=== PATIENT | female | born 1970 ===

== ENCOUNTER 2017-07-09 15:45 | Emergency (ER) | payer OTHER ==
[2017-07-09 15:51] VITALS: TEMP 98.5
--- NOTE | 2017-07-09 16:41 | C.PDOC ---
History Of Present Illness 47 yo female w/o significant PMHx come in for evaluation of lower back, B/L legs pain, R>L, Right arm pain gradually developed for past 2 weeks. Pt reports , " standing on my work all the time, some time do not move". Pt sts, pain is aching, intermittent , " some times my legs gets swollen and swelling resolved with time", Pain is worse with movement for past few days. Pt admits, was seen by PMD 2 weeks ago due to above complaints, " when xray of Right ankle and blood work done, dont known results" and pt received Rx: Naproxen without significant improvement in pain. Otherwise, pt denies known direct trauma or injury, fever, chills, headache, dizziness, neck pain, CP, SOB, dyspnea, palpitation, diaphoresis, abd. pain, N/V, denies weakness, deformity, sensory or vascular deficits to B/L UEs and LEs. Ambulate to ED for evaluation, not in any apparent distress. Pt denies BCP use, no risk factors for DVT or PE. Time Seen by Provider: 07/09/17 15:54 Chief Complaint (Nursing): Lower Extremity Problem/Injury History Per: Patient History/Exam Limitations: no limitations Onset/Duration Of Symptoms: Intermittent Episodes, Gradual, Other (2 weeks ) Current Symptoms Are (Timing): Still Present Additional History Per: Patient Past Medical History Reviewed: Historical Data, Nursing Documentation, Vital Signs Vital Signs: Last Vital Signs Temp 98.5 F 07/09/17 15:51 Pulse 86 07/09/17 15:51 Resp 16 07/09/17 15:51 BP 158/83 H 07/09/17 15:51 Pulse Ox 100 07/09/17 17:09 - Medical History PMH: No Chronic Diseases Surgical History: No Surg Hx Family History: States: Unknown Family Hx - Social History Hx Alcohol Use: No Hx Substance Use: No - Immunization History Hx Tetanus Toxoid Vaccination: No Hx Influenza Vaccination: No Review Of Systems Constitutional: Negative for: Fever, Chills Cardiovascular: Negative for: Chest Pain, Palpitations Respiratory: Negative for: Shortness of Breath Musculoskeletal: Negative for: Neck Pain Neurological: Negative for: Weakness, Numbness, Headache, Dizziness Physical Exam - Physical Exam Appears: Well, Non-toxic, No Acute Distress Skin: Normal Color, Warm, Dry, No Rash, No Ecchymosis Eye(s): bilateral: PERRL Nose: No Flaring Throat: No Erythema, No Drooling Neck: Normal ROM, Supple Cardiovascular: Rhythm Regular Respiratory: No Decreased Breath Sounds, No Accessory Muscle Use, No Rales, No Rhonchi, No Stridor, No Wheezing Gastrointestinal/Abdominal: Soft, No Tenderness, No Distention, No Guarding, No Rebound Back: No CVA Tenderness, No Vertebral Tenderness, No Paraspinal Tenderness ( mild RIght sided. NO midline tenderness, no skin changes.) Extremity: Normal ROM (B/L LEs), Tenderness (over posterior Right knee), No Pedal Edema, No Calf Tenderness, No Deformity, Swelling (mild trace edema B/L ankle, non-pitting.) Neurological/Psych: Oriented x3, Normal Speech, Normal Motor, Normal Sensation, Normal Reflexes ED Course And Treatment O2 Sat by Pulse Oximetry: 100 (on RA) Pulse Ox Interpretation: Normal - Other Rad Right knee X-Ray: Interpreted by Me, Viewed By Me Interpretation: no acute fx or dislocation L-spine X-Ray: Interpreted by Me, Viewed By Me Pelvis w/BL hips X-Ray: Interpreted by Me, Viewed By Me Interpretation: no acute fx or dislocation Progress Note: Right knee XR, Hip XR, LS Spine AP/LAT ordered and reviewed. Patient received Toradol IM, Valium PO. On re-evaluation, pt is AAO#3, not in any apparent distress. Afebrile, hemodynamicaly stable. Non-toxic. Ambulatory in ED with stable gait. ENT: no acute findings. neck: Supple, (-) meningeal sign. Lungs: CTA B/L, BS equal B/L. ABd: benitgn, (-)guarding, (-) rebound. Back: (-) CVA tenderness. FAROM of B/L UEs and LEs, no neurovascular deficits. Pt has clinical findings c/w back pian r/o lumbar radiculopathy, Right knee apin, arm pain, muscle strain. Pt advised and Ref. to F/u with PMD in 1-2 days for re-eval. return to ED if any worsening or new changes. Disposition Counseled Patient/Family Regarding: Studies Performed, Diagnosis, Need For Followup, Rx Given - Disposition Referrals: Susanne Vera [Staff Provider] - Disposition: HOME/ ROUTINE Disposition Time: 17:28 Condition: STABLE Additional Instructions: Bedrest for 2-3 days Take pain medication as prescribed as need Follow up with PMD in 2-3 days for re-evaluation. Return to ED if any worsening or new changes. Prescriptions: Methocarbamol [Robaxin] 500 mg PO TID #14 tab traMADol [Ultram] 50 mg PO TID #7 tab Instructions: Back Pain (ED), Knee Pain (ED), Arthralgia (ED), Muscle Strain ( ED) Forms: [employer] [facility] (Chinese), Work Excuse Print Language: TRISTANIAN - Clinical Impression Clinical Impression: Lumbar radiculopathy, Muscle strain, Joint pain - PA / [employer] / Resident Statement MD/DO has reviewed & agrees with the documentation as recorded. - Scribe Statement The provider has reviewed the documentation as recorded by the Scribe (Iva Perez) All medical record entries made by the Scribe were at my direction and personally dictated by me. I have reviewed the chart and agree that the record accurately reflects my personal performance of the history, physical exam, medical decision making, and the department course for this patient. I have also personally directed, reviewed, and agree with the discharge instructions and disposition.
[2017-07-09 17:17] LABS: RBC URINE 4 /hpf (0-3); URINE BACTERIA FEW (<OCC); URINE BILIRUBIN NEGATIVE (NEGATIVE); URINE BLOOD NEGATIVE (NEGATIVE); URINE COLOR Yellow (YELLOW); URINE GLUCOSE (UA) NORMAL (Normal); URINE KETONE NEGATIVE (NEGATIVE); URINE LEUKOCYTE ESTERASE TRACE Leu/uL (Negative); URINE PROTEIN NEGATIVE (NEGATIVE); URINE UROBILINOGEN NORMAL mg/dL (0.2-1.0); WBC URINE 6 /hpf (0-5)
--- NOTE | 2017-07-09 17:44 | RAD ---
PROCEDURE: Radiographs of the Lumbar Spine. HISTORY: pain COMPARISON: No prior. FINDINGS: BONES: Normal alignment. No listhesis. No fracture. DISC SPACES: Unremarkable. OTHER FINDINGS: None. IMPRESSION: Unremarkable radiographs of the lumbar spine.
--- NOTE | 2017-07-09 17:45 | RAD ---
PROCEDURE: Right Knee Radiographs. HISTORY: pain COMPARISON: None. FINDINGS: BONES: Normal. No fracture. JOINTS: Normal. No osteoarthritis. JOINT EFFUSION: None. OTHER FINDINGS: None. IMPRESSION: Normal radiographs of the right knee.
[2017-07-09 17:48] VITALS: BP 139/75; PULSE 78; RESP 18; O2SAT 98
--- NOTE | 2017-07-09 17:48 | RAD ---
PROCEDURE: Radiographs of the pelvis and bilateral hips HISTORY: pain COMPARISON: None. FINDINGS: BONES: Pelvic ring is intact without fracture or suspicious lytic or blastic change identified. Local soft tissues appear diffusely unremarkable and mild degenerative changes are seen at the sacroiliac and hip joints. Pubic symphysis is intact. JOINTS: No fracture or dislocation seen involving left or right hip joints with local soft tissues unremarkable. SOFT TISSUES: As above. OTHER FINDINGS: None. IMPRESSION: Limited degenerate changes are seen the bilateral hip and sacroiliac joints. No fracture or dislocation identified.
== END 2017-07-09 17:48 | disposition home or self-care (01) ==
LOC: C.ER 15:45
DX: M54.16 Radiculopathy, lumbar region (principal); S86.911A Strain of unspecified muscle(s) and tendon(s) at lower leg level, right leg, initial encounter; X58.XXXA Exposure to other specified factors, initial encounter; M79.601 Pain in right arm

== ENCOUNTER 2018-01-15 14:31 | Emergency (ER) | payer OTHER ==
[2018-01-15 14:39] VITALS: BP 152/90; PULSE 73; RESP 18; TEMP 98.1; O2SAT 100
[2018-01-15] MEDS ORDERED: Acetaminophen-Codeine 300/30 mg Tab PO STA (14:58)
[2018-01-15] MEDS ORDERED: Acetaminophen-Codeine 300/30 mg Tab PO ONE (15:45)
--- NOTE | 2018-01-15 15:54 | C.PDOC ---
History Of Present Illness 47 yr old female presents to the ER with complaints of upper back pain for the past 2 weeks. Patient reports temporary relief with Motrin. Denies injury, trauma, chest pain, SOB, abdominal pain, constipation, dysuria, incontinence, weakness or numbness. Time Seen by Provider: 01/15/18 14:51 Chief Complaint (Nursing): Back Pain History Per: Patient History/Exam Limitations: no limitations Onset/Duration Of Symptoms: Days (2 weeks) Past Medical History Reviewed: Historical Data, Nursing Documentation, Vital Signs Vital Signs: Last Vital Signs Temp 98.1 F 01/15/18 14:33 Pulse 73 01/15/18 14:33 Resp 18 01/15/18 14:33 BP 152/90 H 01/15/18 14:33 Pulse Ox 100 01/15/18 15:55 Family History: States: No Known Family Hx - Social History Hx Alcohol Use: No Hx Substance Use: No - Immunization History Hx Tetanus Toxoid Vaccination: No Hx Influenza Vaccination: No Review Of Systems Except As Marked, All Systems Reviewed And Found Negative. Cardiovascular: Negative for: Chest Pain Respiratory: Negative for: Shortness of Breath Gastrointestinal: Negative for: Abdominal Pain, Constipation Genitourinary: Negative for: Dysuria Neurological: Negative for: Weakness, Numbness Physical Exam - Physical Exam Appears: Non-toxic, No Acute Distress Skin: Warm, Dry, No Rash Oral Mucosa: Moist Neck: Normal, Normal ROM, No Midline Cervical Tenderness, Supple Cardiovascular: Rhythm Regular, No Murmur Respiratory: Normal Breath Sounds, No Rales, No Rhonchi, No Stridor, No Wheezing Back: Muscle Spasm, Other (+ parathoracic and paralumbar tenderness) Extremity: Normal ROM, No Swelling Neurological/Psych: Oriented x3, Normal Speech, Normal Motor, Normal Sensation, Normal Reflexes ED Course And Treatment O2 Sat by Pulse Oximetry: 100 (RA) Pulse Ox Interpretation: Normal Medical Decision Making Medical Decision Making: IMPRESSION: Back pain PLAN: * Motrin PO * Tylenol/Codeine Po NOTE: * Patient is treated with Motrin and Tylenol/Codeine for the pain * On reevaluation, patient reports improvement of pain * Patient is discharged home with pain management and follow up instructions Disposition Discussed With DrSixto: Susanne Vera Counseled Patient/Family Regarding: Diagnosis, Need For Followup, Rx Given - Disposition Disposition: HOME/ ROUTINE Disposition Time: 15:52 Condition: STABLE Additional Instructions: follow up with your doctor in 2 days call to make an appointment take medications as prescribed return to ER if symptoms worsens or progress Prescriptions: Acetaminophen with Codeine [Tylenol with Codeine #3 Tablet] 1 each PO TID PRN # 15 tablet PRN Reason: Pain, Moderate (4-7) Cyclobenzaprine [Cyclobenzaprine HCl] 10 mg PO TID PRN #12 tab PRN Reason: Muscle Spasm Instructions: Upper Back Pain Forms: Gen Discharge Inst Turkmen, [facility] (Turkmen) Print Language: ICELANDIC - Clinical Impression Clinical Impression: Thoracic back sprain - Scribe Statement The provider has reviewed the documentation as recorded by the Beau Jaffe Provider Attestation: All medical record entries made by the Beau were at my direction and personally dictated by me. I have reviewed the chart and agree that the record accurately reflects my personal performance of the history, physical exam, medical decision making, and the department course for this patient. I have also personally directed, reviewed, and agree with the discharge instructions and disposition.
== END 2018-01-15 16:00 | disposition home or self-care (01) ==
LOC: C.ER 14:31
DX: S23.3XXA Sprain of ligaments of thoracic spine, initial encounter (principal); X58.XXXA Exposure to other specified factors, initial encounter; Y92.9 Unspecified place or not applicable

== ENCOUNTER 2018-10-21 09:14 | Observation (INO) | payer OTHER ==
--- NOTE | 2018-10-21 10:01 | C.PDOC ---
History Of Present Illness Patient is a pleasant 48 female presents to ED for complaints of intermittent midsternal & left sided chest pain. Patient describes pain as intermittent, radiates to the back at times, squeezing in nature, worsens on exertion, and a ssociated with fatigue. LNMP 09/29/18. Denies PMHx, Hx of hospitalization, smoking, drinking, or drug use. 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 Time Seen by Provider: 10/21/18 09:32 Chief Complaint (Nursing): Chest Pain History Per: Patient History/Exam Limitations: no limitations Onset/Duration Of Symptoms: Hrs Current Symptoms Are (Timing): Still Present Quality: Squeezing Modifying Factors: None Exacerbating Factors: Exertion Alleviating Factors: None Recent travel outside of the [place]: No Past Medical History Reviewed: Historical Data, Nursing Documentation, Vital Signs Vital Signs: Last Vital Signs Temp 97.7 F 10/21/18 09:26 Pulse 80 10/21/18 09:26 Resp 18 10/21/18 09:26 BP 136/81 10/21/18 09:26 Pulse Ox 100 10/21/18 09:26 - Medical History PMH: No Chronic Diseases Surgical History: No Surg Hx Family History: States: Other Other Family History: Cancer (Father and Nephew). - Social History Hx Tobacco Use: No Hx Alcohol Use: No Hx Substance Use: No - Immunization History Hx Tetanus Toxoid Vaccination: No Hx Influenza Vaccination: No Review Of Systems Constitutional: Positive for: Chills. Negative for: Fever Cardiovascular: Positive for: Chest Pain (Midsternal ) Respiratory: Negative for: Shortness of Breath Gastrointestinal: Negative for: Nausea, Vomiting, Abdominal Pain, Diarrhea Skin: Negative for: Rash Neurological: Negative for: Weakness, Numbness Physical Exam - Physical Exam Appears: Well, Non-toxic, No Acute Distress Skin: Normal Color, Warm, Dry, No Rash Head: Atraumatic, Normacephalic Eye(s): bilateral: Normal Inspection, PERRL, EOMI Ear(s): Bilateral: Normal Nose: Normal Oral Mucosa: Moist Tongue: Normal Appearing Lips: Normal Appearing Teeth: Normal Dentition Gingiva: Normal Appearing Neck: Normal ROM, Supple Chest: Symmetrical, No Tenderness Cardiovascular: Rhythm Regular, No Murmur Respiratory: Normal Breath Sounds, No Accessory Muscle Use, No Rales, No R honchi, No Wheezing Gastrointestinal/Abdominal: Normal Exam, Bowel Sounds (Active ), Soft, No Tenderness Back: Normal Inspection Extremity: Normal ROM, No Pedal Edema, No Calf Tenderness Extremity: Bilateral: Atraumatic, Normal Color And Temperature, Normal ROM Pulses: Left Radial: Normal, Right Radial: Normal Neurological/Psych: Oriented x3, Normal Speech, Normal Motor, Normal Sensation, Other (No focal deficits ) Gait: Steady ED Course And Treatment - Laboratory Results Result Diagrams: 10/21/18 10:06 10/21/18 10:06 O2 Sat by Pulse Oximetry: 100 (RA) Pulse Ox Interpretation: Normal - Other Rad CXR X-Ray: Viewed By Me, Read By Radiologist Interpretation: Date of service: 10/21/2018. HISTORY: Chest pain. COMPAR DOE: No prior. TECHNIQUE: Chest PA and lateral. FINDINGS: LINES AND TUBES: None. LUNG AND PLEURA: The lungs are well inflated and clear. No pleural effusion or pneumothorax. HEART AND MEDIASTINUM: The heart is not enlarged. No aortic atherosclerotic calcification present. The hilar and mediastinal contours are within normal limits. SKELETAL STRUCTURES: The bony structures are within normal limits for the patient's age. VISUALIZED UPPER ABDOMEN: Normal. OTHER FINDINGS: None. IMPRESSION: No active pulmonary disease. Medical Decision Making Medical Decision Making: Initial Impression: Chest pain especially w/ exertion (new onset). Pt with no prior hx of chest pain (according to the pt) Initial Plan: * EKG * Blood work * CXR * D-Dimer * Aspirin not given due to allergy 11:10 AM - Progress note: Lab work unremarkable but due to symptoms and no prior hx of chest pain, will admit for serial cardiac enzymes. Patient endorsed to spitalist Dr. Kajal Ferreira. / Disposition Counseled Patient/Family Regarding: Studies Performed, Diagnosis - Disposition Disposition: HOSPITALIZED Disposition Time: 11:14 Condition: FAIR - POA Present On Arrival: None - Clinical Impression Clinical Impression: Chest pain - Scribe Statement The provider has reviewed the documentation as recorded by the Scribe Jack Sultana All medical record entries made by the Scribe were at my direction and person ally dictated by me. I have reviewed the chart and agree that the record accurately reflects my personal performance of the history, physical exam, medical decision making, and the department course for this patient. I have also personally directed, reviewed, and agree with the discharge instructions and disposition.wfik Decision To Admit - Pt Status Changed To: Hospital Disposition Of: Observation - . Bed Request Type: Telemetry Admitting Physician: Kajal Ferreira Patient Diagnosis: Chest pain
[2018-10-21 10:16] LABS: BASO % 1.3 % (0.0-2.0); EOS # 0.2 K/uL (0.0-0.7); EOS % 5.9 % (0.0-4.0); HEMOGLOBIN 11.6 g/dL (11.0-16.0); LYMPH # 1.4 K/uL (1.0-4.3); LYMPH % 39.8 % (20.0-40.0); MEAN CELL VOLUME 93.8 fL (81.0-99.0); MEAN CORPUSCULAR HEMOGLOBIN 31.5 pg (27.0-31.0); MEAN CORPUSCULAR HGB CONC 33.6 g/dL (33.0-37.0); MEAN PLATELET VOLUME 8.4 fL (7.2-11.7); MONO # 0.4 K/uL (0.0-0.8); MONO % 10.8 % (0.0-10.0); NEUT # 1.5 K/uL (1.8-7.0); NEUT % 42.2 % (50.0-75.0); RBC 3.68 Mil/uL (3.80-5.20); RED CELL DISTRIBUTION WIDTH 14.4 % (11.5-14.5); WHITE BLOOD COUNT 3.5 K/uL (4.8-10.8)
[2018-10-21 10:24] LABS: ALB/GLOB RATIO 1.4 (1.0-2.1); ALBUMIN 4.5 g/dL (3.5-5.0); ALT/SGPT 21 U/L (9-52); AST/SGOT 22 U/L (14-36); BLOOD UREA NITROGEN 9 mg/dL (7-17); CALCIUM 9.5 mg/dl (8.6-10.4); GFR NON-AFRICAN AMERICAN > 60
[2018-10-21 10:34] LABS: B-TYPE NATRIURETIC PEPTIDE 82.4 pg/mL (0-450)
--- NOTE | 2018-10-21 11:10 | RAD ---
Date of service: 10/21/2018 HISTORY: Chest pain COMPARISON: No prior. TECHNIQUE: Chest PA and lateral FINDINGS: LINES AND TUBES: None. LUNG AND PLEURA: The lungs are well inflated and clear. No pleural effusion or pneumothorax. HEART AND MEDIASTINUM: The heart is not enlarged. No aortic atherosclerotic calcification present. The hilar and mediastinal contours are within normal limits. SKELETAL STRUCTURES: The bony structures are within normal limits for the patient's age. VISUALIZED UPPER ABDOMEN: Normal. OTHER FINDINGS: None. IMPRESSION: No active pulmonary disease.
--- NOTE | 2018-10-21 12:01 | CP.PCM.HP ---
History of Present Illness - History of Present Illness History of Present Illness: cc: chest pain HPI: 48 y/o female, no significant PMH, presented to the ED on 10/21/18 with intermittent chest pain and constant back pain. As per pt, the pain began one week ago and has remained the same intensity throughout the week. The back pain is located in her mid thoracic region (T7) b/l, while her chest pain is located on the left side of her chest (ribs 4-5). She describes the chest pain as "pressure" and the back pain as a "tightness" that feels like "someone is grabbing her, then letting her go." She reports radiation of the pain to her right shoulder and right arm, and rates the pain at 10/10 upon arrival to the ED and 6/10 currently. Her pain is made worse with movement and better with rest. She also admitted to taking Ibuprofen 800mg (prescribed at [facility] during ED visit Jan 2018) at home, which helped decrease the pain slightly. She denies any recent illnesses, sick contacts or travel. She denies every experiencing this pain before and does not remember if there were any inciting events. LMP was September 29 2018 and she reports it as being normal. She reports chest pain, back pain (mid thoracic), neck and shoulder pain, headache, chills, nausea, intermittent palpitations, intermittent numbness in b/l LE, and weight loss. She denies SOB, cough, vomiting, diarrhea, constipatio n, dysuria, hematuria, dysmenorrhea, cold intolerance, or muscle weakness. PMD: Dr. Hannah Pack PMH: possible GERD (resolves without medication) PSH: denies FH: denies All: aspirin Social: lives with her and daughter; denies any prior or current alcohol, tobacco or illicit drug use Present on Admission - Present on Admission Any Indicators Present on Admission: No Review of Systems - Constitutional Constitutional: absent: Chills, Headache - EENT Eyes: absent: Blurred Vision Ears: absent: Decreased Hearing Nose/Mouth/Throat: absent: Dry Mouth, Dysphagia - Cardiovascular Cardiovascular: Chest Pain, Chest Pain at Rest - Respiratory Respiratory: absent: Dyspnea, Snoring - Genitourinary Genitourinary: absent: Hematuria, Pyuria - Musculoskeletal Musculoskeletal: absent: Arthralgias - Integumentary Integumentary: absent: Alopecia, Change in Pigmentation, Lesions - Neurological Neurological: absent: Abnormal Hearing, Headaches, Radicular Pain - Psychiatric Psychiatric: absent: Confusion, Depression Past Patient History - Past Social History Smoking Status: Never Smoked - PSYCHIATRIC Hx Substance Use: No - SURGICAL HISTORY Hx Surgeries: No - ANESTHESIA Hx Anesthesia: No Hx Anesthesia Reactions: No Meds Allergies/Adverse Reactions: Allergies Allergy/AdvReac Type Severity Reaction Status Date / Time aspirin Allergy NAUSEA Verified 01/15/18 14:37 Physical Exam - Constitutional Appears: Non-toxic, No Acute Distress - Head Exam Head Exam: NORMAL INSPECTION, NORMOCEPHALIC - Eye Exam Eye Exam: EOMI, Normal appearance - ENT Exam ENT Exam: Mucous Membranes Moist - Respiratory Exam Respiratory Exam: Clear to Auscultation Bilateral, NORMAL BREATHING PATTERN. absent: Rales, Rhonchi, Wheezes - Cardiovascular Exam Cardiovascular Exam: +S1, +S2 - GI/Abdominal Exam GI & Abdominal Exam: Normal Bowel Sounds, Soft. absent: Distended, Firm, Tenderness - Extremities Exam Extremities exam: Negative for: calf tenderness, pedal edema - Back Exam Back exam: absent: CVA tenderness (L), CVA tenderness (R) - Neurological Exam Neurological exam: Alert, Oriented x3 - Psychiatric Exam Psychiatric exam: Normal Affect, Normal Mood - Skin Skin Exam: Dry, Intact, Normal Color, Warm Results - Vital Signs Recent Vital Signs: Last Vital Signs Temp 98.5 F 10/21/18 11:42 Pulse 65 10/21/18 11:42 Resp 16 10/21/18 11:42 BP 137/82 10/21/18 11:42 Pulse Ox 100 10/21/18 11:42 - Labs Result Diagrams: 10/21/18 10:06 10/21/18 10:06 Labs: Laboratory Results - last 24 hr 10/21/18 10/21/18 10/21/18 10:06 10:06 10:06 WBC 3.5 L RBC 3.68 L Hgb 11.6 Hct 34.5 MCV 93.8 MCH 31.5 H MCHC 33.6 RDW 14.4 Plt Count 265 MPV 8.4 Neut % (Auto) 42.2 L Lymph % (Auto) 39.8 [place] % (Auto) 10.8 H Eos % (Auto) 5.9 H Baso % (Auto) 1.3 Neut # (Auto) 1.5 L Lymph # (Auto) 1.4 [place] # (Auto) 0.4 Eos # (Auto) 0.2 Baso # (Auto) 0.0 D-Dimer, Quantitative < 200 Sodium 138 Potassium 4.2 Chloride 101 Carbon Dioxide 26 Anion Gap 15 BUN 9 Creatinine 0.6 L Est GFR ( Amer) > 60 Est GFR (Non-Af Amer) > 60 Random Glucose 96 Calcium 9.5 Total Bilirubin 0.9 AST 22 ALT 21 Alkaline Phosphatase 54 Total Creatine Kinase 62 Troponin I < 0.0120 NT-Pro-B Natriuret Pep 82.4 Total Protein 7.9 Albumin 4.5 Globulin 3.3 Albumin/Globulin Ratio 1.4 Assessment & Plan - Assessment and Plan (Free Text) Assessment: 48 F w/ no PMhx presented to ED for chest pain ~ 1 week: Chest Pain - ACS vs muscle train - troponins X3 negative - EKG T-wave inversions in V1, V2, V4, NSR - f/u additional EKG - tenderness on palpation on back - A1C 5.5, Lipid panel WNL - F/u ECH - F/u cardio, Dr. Alcantar recs - Cyclobenzaprin 5 Po once, toradol 50mg, naproxen 550 mg PO BID Prophylaxis - DVT: SCDs - Heart healthy diet - PT/OT eval
[2018-10-21 14:40] LABS: HDL CHOLESTEROL 63 mg/dL (30-70)
[2018-10-21 14:50] LABS: LDL CHOLESTEROL 90 mg/dL (0-129)
[2018-10-21 14:54] LABS: CK-MB 0.24 ng/mL (0.0-3.38)
[2018-10-21] MEDS: Naproxen 550 mg Tab PO SCH (18:03)
[2018-10-21 21:41] LABS: CK-MB 0.25 ng/mL (0.0-3.38)
[2018-10-22 01:34] VITALS: RESP 20
[2018-10-22 07:29] LABS: BASO % 1.3 % (0.0-2.0); EOS # 0.2 K/uL (0.0-0.7); EOS % 6.6 % (0.0-4.0); HEMOGLOBIN 11.2 g/dL (11.0-16.0); LYMPH # 1.6 K/uL (1.0-4.3); LYMPH % 46.2 % (20.0-40.0); MEAN CELL VOLUME 94.1 fL (81.0-99.0); MEAN CORPUSCULAR HEMOGLOBIN 31.4 pg (27.0-31.0); MEAN CORPUSCULAR HGB CONC 33.4 g/dL (33.0-37.0); MEAN PLATELET VOLUME 8.4 fL (7.2-11.7); MONO # 0.4 K/uL (0.0-0.8); MONO % 11.5 % (0.0-10.0); NEUT # 1.2 K/uL (1.8-7.0); NEUT % 34.4 % (50.0-75.0); NRBC % 0.1 % (0.0-2.0); RBC 3.57 Mil/uL (3.80-5.20); RED CELL DISTRIBUTION WIDTH 14.3 % (11.5-14.5); WHITE BLOOD COUNT 3.4 K/uL (4.8-10.8)
[2018-10-22 08:08] LABS: ALB/GLOB RATIO 1.3 (1.0-2.1); ALBUMIN 4.1 g/dL (3.5-5.0); ALT/SGPT 24 U/L (9-52); AST/SGOT 23 U/L (14-36); BLOOD UREA NITROGEN 14 mg/dL (7-17); CALCIUM 9.2 mg/dl (8.6-10.4); GFR NON-AFRICAN AMERICAN > 60
[2018-10-22 08:21] VITALS: O2SAT 100
[2018-10-22] MEDS: Naproxen 550 mg Tab PO SCH (09:32)
[2018-10-22] MEDS ORDERED: Enoxaparin 40 mg Syringe SC SCH (10:00)
--- NOTE | 2018-10-22 15:19 | CP.PCM.DIS ---
Provider - Provider Date of Admission: 10/21/18 11:14 Attending physician: Kajal Ferreira, Consults: 10/21/18 15:19 Cardiology Consult Routine Comment: Consulting Provider: Shiraz Alcantar Consulting Physician: Shiraz Alcantar Reason for Consult: abnormal ekg, chest pain 10/21/18 15:32 Cardiology Consult Routine Comment: Consulting Provider: Shiraz Alcantar Consulting Physician: Shiraz Alcantar Reason for Consult: abnormal ekg, chest pain Time Spent in preparation of Discharge (in minutes): 45 Diagnosis - Discharge Diagnosis (1) Chest pain Status: Resolved (2) Thoracic back sprain Status: Acute Hospital Course - Lab Results Lab Results: Most Recent Lab Values WBC 3.4 K/uL (4.8-10.8) L 10/22/18 07:20 RBC 3.57 Mil/uL (3.80-5.20) L 10/22/18 07:20 Hgb 11.2 g/dL (11.0-16.0) 10/22/18 07:20 Hct 33.6 % (34.0-47.0) L 10/22/18 07:20 MCV 94.1 fL (81.0-99.0) 10/22/18 07:20 MCH 31.4 pg (27.0-31.0) H 10/22/18 07:20 MCHC 33.4 g/dL (33.0-37.0) 10/22/18 07:20 RDW 14.3 % (11.5-14.5) 10/22/18 07:20 Plt Count 258 K/uL (130-400) 10/22/18 07:20 MPV 8.4 fL (7.2-11.7) 10/22/18 07:20 Neut % (Auto) 34.4 % (50.0-75.0) L 10/22/18 07:20 Lymph % (Auto) 46.2 % (20.0-40.0) H 10/22/18 07:20 Davidson % (Auto) 11.5 % (0.0-10.0) H 10/22/18 07:20 Eos % (Auto) 6.6 % (0.0-4.0) H 10/22/18 07:20 Baso % (Auto) 1.3 % (0.0-2.0) 10/22/18 07:20 Neut # (Auto) 1.2 K/uL (1.8-7.0) L 10/22/18 07:20 Lymph # (Auto) 1.6 K/uL (1.0-4.3) 10/22/18 07:20 Davidson # (Auto) 0.4 K/uL (0.0-0.8) 10/22/18 07:20 Eos # (Auto) 0.2 K/uL (0.0-0.7) 10/22/18 07:20 Baso # (Auto) 0.0 K/uL (0.0-0.2) 10/22/18 07:20 D-Dimer, Quantitative < 200 ng/mlDDU (0-243) 10/21/18 10:06 Sodium 135 mmol/L (132-148) 10/22/18 07:20 Potassium 4.1 mmol/L (3.6-5.2) 10/22/18 07:20 Chloride 102 mmol/L (98-107) 10/22/18 07:20 Carbon Dioxide 24 mmol/L (22-30) 10/22/18 07:20 Anion Gap 13 (10-20) 10/22/18 07:20 BUN 14 mg/dL (7-17) 10/22/18 07:20 Creatinine 0.6 mg/dL (0.7-1.2) L 10/22/18 07:20 Est GFR ( Amer) > 60 10/22/18 07:20 Est GFR (Non-Af Amer) > 60 10/22/18 07:20 Random Glucose 89 mg/dL (65-105) 10/22/18 07:20 Hemoglobin A1c 5.5 % (4.2-6.5) 10/21/18 14:31 Calcium 9.2 mg/dl (8.6-10.4) 10/22/18 07:20 Phosphorus 4.1 mg/dL (2.5-4.5) 10/22/18 07:20 Magnesium 1.7 mg/dL (1.6-2.3) 10/22/18 07:20 Total Bilirubin 0.8 mg/dL (0.2-1.3) 10/22/18 07:20 AST 23 U/L (14-36) 10/22/18 07:20 ALT 24 U/L (9-52) 10/22/18 07:20 Alkaline Phosphatase 51 U/L (38-126) 10/22/18 07:20 Total Creatine Kinase 57 U/L (30-135) 10/21/18 21:09 CK-MB (Mass) 0.25 ng/mL (0.0-3.38) 10/21/18 21:09 Troponin I < 0.0120 ng/mL (0.00-0.120) 10/21/18 21:09 NT-Pro-B Natriuret Pep 82.4 pg/mL (0-450) 10/21/18 10:06 Total Protein 7.2 g/dL (6.3-8.3) 10/22/18 07:20 Albumin 4.1 g/dL (3.5-5.0) 10/22/18 07:20 Globulin 3.1 gm/dL (2.2-3.9) 10/22/18 07:20 Albumin/Globulin Ratio 1.3 (1.0-2.1) 10/22/18 07:20 Triglycerides 35 mg/dL (0-149) 10/21/18 14:23 Cholesterol 167 mg/dL (0-199) 10/21/18 14:23 LDL Cholesterol Direct 90 mg/dL (0-129) 10/21/18 14:23 HDL Cholesterol 63 mg/dL (30-70) 10/21/18 14:23 Free T4 0.62 ng/dL (0.78-2.19) L 10/21/18 14:31 TSH 3rd Generation 1.88 mIU/L (0.46-4.68) 10/21/18 14:23 - Hospital Course Hospital Course: HPI: Pt is a 48 y/o female, no significant PMH, presented to the ED on 10/21/18 with intermittent chest pain and constant back pain. As per pt, the pain began one week ago and has remained the same intensity throughout the week. The back pain is located in her mid thoracic region (T7) b/l, while her chest pain is located on the left side of her chest (ribs 4-5). She describes the chest pain as "pressure" and the back pain as a "tightness" that feels like "someone is grabbing her, then letting her go." She reports radiation of the pain to her right shoulder and right arm, and rates the pain at 10/10 upon arrival to the ED and 6/10 currently. Her pain is made worse with movement and better with rest. She also admitted to taking Ibuprofen 800mg (prescribed at [facility] during ED visit Jan 2018) at home, which helped decrease the pain slightly. She denies any recent illnesses, sick contacts or travel. She denies every experiencing this pain before and does not remember if there were any inciting events. LMP was September 29 2018 and she reports it as being normal. Hospital Course: Patient was admitted to [facility] on 10/21/18 for 1 week of worsening chest and back/shoulder pain. On physical exam, she had tenderness to palpation on her left anterior chest near sternal border of ribs 4-5 and the paraspinal muscles at the mid thoracic level. Troponin I was negative x3, with a consistent value of <0.0120 on 10/21/18 at 11:59, 15:59, and 23:59. ProBNP, total ck, and ck-mb were all WNL. CXR showed no acute pulmonary disease. Initial EKG at 9:45 showed normal sinus rhythm. Repeat EKG at 14:00 showed T wave inversions in V1, V2, V4 with normal sinus rhythm. Pt was then admitted to the floor and placed on telemetry. Follow up EKG at 20:00 showed normal sinus rhythm. She was given Cyclobenzaprine 5mg once, as well as Toradol 30mg once for acute management of her pain. Her asbestos microscopist, Dr. Alcantar was consulted and made aware of her admission. HbA1C: 5.5, lipid panel WNL, TSH WNL, Free T4 0.62 (low). Echocardiogram was done on 10/21/18 at 14:00, still pending official read. Prophylactically, she was given Lovenox 40mg SC daily to prevent DVT, along with Pepcid 20mg PO BID to prevent gastric ulcer. She was seen and assessed by PT and found to be independent and steady and 4+ strength in upper and lower extremities b/l. Since admission, her pain has been adequately managed with Naproxen 550mg PO BID. Pt was seen and examined on 10/22/18 and found to have adequate ROM and no clinical signs of radiculopathy, sciatica, or rotator cuff myopathies. Pt stated that she is feeling much better, with only minimal remaining chest and back/shoulder pain. Imaging and Dx's: -CXR (10/21/18 9:45): No active pulmonary disease -Echocardiogram (10/21/18): pending official read -ELIUDIs Neg x3 Discharge Instructions: -Medications: Naproxen 550mg PO PRN Pepcid 20mg PO BID -continue with bedrest for 1-2 days -f/u with [facility], Dr. Alcantar, within 1 week for echocardiogram results and cardiac stress test -f/u with PCP in 2-3 days for: re-evaluation of musculoskeletal painm, f/u w/ Dr Ammon Spaulding repeat thyroid panel, low free T4 (0.62) on 10/21/18 THIS IS A SUMMARY, PLEASE REFER TO epicurio FOR COMPLETE RECORDS If symptoms return, seek medical attention immediately Discharge Exam - Head Exam Head Exam: NORMAL INSPECTION, NORMOCEPHALIC - Additional Findings Additional findings: - Constitutional Appears: Non-toxic, No Acute Distress - Head Exam Head Exam: NORMAL INSPECTION, NORMOCEPHALIC - Eye Exam Eye Exam: EOMI, Normal appearance - ENT Exam ENT Exam: Mucous Membranes Moist - Respiratory Exam Respiratory Exam: Clear to Auscultation Bilateral, NORMAL BREATHING PATTERN. absent: Rales, Rhonchi, Wheezes - Cardiovascular Exam Cardiovascular Exam: +S1, +S2 - GI/Abdominal Exam GI & Abdominal Exam: Normal Bowel Sounds, Soft. absent: Distended, Firm, Tenderness - Extremities Exam Extremities exam: Negative for: calf tenderness, pedal edema - Back Exam Back exam: absent: CVA tenderness (L), CVA tenderness (R) - Neurological Exam Neurological exam: Alert, Oriented x3 - Psychiatric Exam Psychiatric exam: Normal Affect, Normal Mood - Skin Skin Exam: Dry, Intact, Normal Color, Warm Discharge Plan - Discharge Medications Prescriptions: Famotidine [Pepcid] 20 mg PO BID #30 tab Naproxen [Anaprox DS] 550 mg PO BID #10 tab - Follow Up Plan Condition: FAIR Disposition: HOME/ ROUTINE Additional Instructions: Discharge Instructions: -Medications: Naproxen 550mg PO PRN Pepcid 20mg PO BID -continue with bedrest for 1-2 days -f/u with [facility], Dr. Alcantar, within 1 week for echocardiogram results and cardiac stress test -f/u with PCP in 2-3 days for: re-evaluation of musculoskeletal painm, f/u w/ Dr Ammon Spaulding repeat thyroid panel, low free T4 (0.62) on 10/21/18 Referrals: Shiraz Alcantar MD [Staff Provider] -
[2018-10-22 16:14] VITALS: BP 144/84; PULSE 80; TEMP 98.3
--- NOTE | 2018-10-22 16:43 | CARD ---
APPROVED REPORT Date of service: 10/22/2018 EXAM: Two-dimensional and M-mode echocardiogram with Doppler and color Doppler. Other Information Quality : GoodRhythm : INDICATION Abnormal EKG/Arrhythmia Chest Pain 2D DIMENSIONS IVSd0.8 (0.7-1.1cm)LVDd4.9 (3.9-5.9cm) PWd0.8 (0.7-1.1cm)LA Reufnq38 (18-58mL) LVDs3.5 (2.5-4.0cm)FS (%) 28.1 % LVEF (%)54.2 (>50%)LVEF (Simeon's)62.28 % M-Mode DIMENSIONS Left Atrium (MM)2.97 (2.5-4.0cm)IVSd0.88 (0.7-1.1cm) Aortic Root3.37 (2.2-3.7cm)LVDd5.17 (4.0-5.6cm) Aortic Cusp Exc.2.37 (1.5-2.0cm)PWd0.64 (0.7-1.1cm) FS (%) 26 %LVDs3.80 (2.0-3.8cm) LVEF (%)55 (>50%) Mitral Valve MV E Douiifnb36.7cm/sMV A Ndhzjvht49.2cm/sE/A ratio0.8 TDI Lateral E' Peak V8.03cm/sMedial E' Peak V5.38cm/sE/Lateral E'7.1 E/Medial E'10.5 Tricuspid Valve TR Peak Imsrzsvk066ot/sTR Peak Gr.[id number] LEFT VENTRICLE The left ventricle is normal size. There is normal left ventricular wall thickness. The left ventricular function is normal. The left ventricular ejection fraction is within the normal range. 62% No regional wall motion abnormalities noted. The left ventricular diastolic function is indterminate. No left ventricle thrombus noted on this study. There is no ventricular septal defect visualized. There is no left ventricular aneurysm. There is no mass noted in the left ventricle. RIGHT VENTRICLE The right ventricle is normal size. There is normal right ventricular wall thickness. The right ventricular systolic function is normal. ATRIA The left atrium size is normal. The right atrium size is normal. The interatrial septum is intact with no evidence for an atrial septal defect. AORTIC VALVE The aortic valve is normal in structure and function. No aortic regurgitation is present. There is no aortic valvular stenosis. There is no aortic valvular vegetation. MITRAL VALVE The mitral valve is normal in structure and function. There is no evidence of mitral valve prolapse. There is no mitral valve stenosis. There is mild mitral valve regurgitation noted. TRICUSPID VALVE The tricuspid valve is normal in structure and function. There is no tricuspid valve regurgitation noted. There is no tricuspid valve prolapse or vegetation. There is no tricuspid valve stenosis. PULMONIC VALVE The pulmonary valve is normal in structure and function. There is no pulmonic valvular regurgitation. There is no pulmonic valvular stenosis. GREAT VESSELS The aortic root is normal in size. The ascending aorta is normal in size. The pulmonary artery is normal. The IVC is normal in size and collapses >50% with inspiration. PERICARDIAL EFFUSION The pericardium appears normal. There is no pleural effusion. <Conclusion> The left ventricular function is normal. Normal Doppler.
--- NOTE | 2018-10-22 18:08 | CARD ---
APPROVED REPORT Date of service: 10/21/2018 EKG Measurement Heart [id number] <Conclusion> Normal sinus rhythm Normal ECG
--- NOTE | 2018-10-23 14:52 | CARD ---
APPROVED REPORT Date of service: 10/21/2018 EKG Measurement Heart [id number] <Conclusion> Normal sinus rhythm Minimal voltage criteria for LVH, may be normal variant Septal infarct, age undetermined Abnormal ECG
--- NOTE | 2018-10-23 14:53 | CARD ---
APPROVED REPORT Date of service: 10/21/2018 EKG Measurement Heart [id number] <Conclusion> Normal sinus rhythm Normal ECG
== END 2018-10-22 17:00 | disposition home or self-care (01) ==
LOC: C.ER 09:14 → C.9E 11:14 → C.6T 15:48
PROVIDERS: ADMIT Hospitalist; ATTEND Hospitalist
DX: R07.89 Other chest pain (principal); S23.3XXA Sprain of ligaments of thoracic spine, initial encounter; Z80.9 Family history of malignant neoplasm, unspecified
CPT/HCPCS: 36415; 71046; 80053; 80061; 82550; 83036; 83735; 83880; 84100; 84439; 84443; 84484; 85025; 85378; 93005; 93306; 96374; 97116; 97161; 97165; 97530; 99285; G0378; G8978; G8979; G8980; G8987; G8988; G8989; J1650; J1885